=== PATIENT | female | born 1995 | race Caucasian/White ===

== ENCOUNTER → 2016-05-22 | Outpatient (CLI) | payer OTHER ==
[~2016-05-22] MED LIST: CITALOPRAM HBR20 MG PO; KEPPRA500 MG PO; KEPPRA750 MG PO; PROZAC40 MG PO; ZOLOFT100 MG PO
== END | disposition home or self-care (01) ==
LOC: RAD 13:00
DX: Z34.00 Encounter for supervision of normal first pregnancy, unspecified trimester (principal); Z3A.24 24 weeks gestation of pregnancy
CPT/HCPCS: 76811

== ENCOUNTER → 2016-06-20 | Outpatient (CLI) | payer OTHER ==
[~2016-06-20] VITALS: Ht 152.4 cm; Wt 69.0 kg
[~2016-06-20] MED LIST changes: +PRENATAL TABLE1 EAC3 PO
[2016-06-20 16:27] VITALS: BP 123/64
== END | disposition home or self-care (01) ==
LOC: IVINF 14:00
DX: Z31.82 Encounter for Rh incompatibility status (principal)
CPT/HCPCS: 96372

== ENCOUNTER 2016-09-03 22:54 | Inpatient (IN) | payer OTHER ==
[~2016-09-03] VITALS: Ht 152.4 cm; Wt 86.0 kg
[2016-09-03] MEDS ORDERED: IRON 100 PLUS1 EACH PO (23:37)
[2016-09-03 23:43] VITALS: BP 130/80
[2016-09-04] VITALS (21 sets, daily range): BP systolic 98–138; BP diastolic 55–81
[2016-09-04 00:46] LABS: EOSINOPHIL (%) 0.2 % (0-5); HEMATOCRIT 32.3 % (36.0-46.0); IMMATURE GRANULOCYTE (%) 0.5 % (0.0-0.7); IMMATURE GRANULOCYTE COUNT 0.1 K/uL; INSTRUMENT ABS NEUTROPHIL CT 15.2 K/uL; LYMPHOCYTE COUNT 1.6 K/uL (1.0-2.8); MCH 25.6 PG (29.0-34.0); MCHC 31.9 G/DL (30.0-36.0); MCV 80.1 FL (83-99); MEAN PLAT.VOLUME 9.8 uM^3 (9.5-12.4); MONOCYTE (%) 4.2 % (3-12); MONOCYTE COUNT 0.7 K/uL (0-0.8); NEUTROPHIL (%) 86.1 % (45-76); NEUTROPHIL COUNT 15.2 K/uL (1.8-6.4); PLATELET COUNT 258 K/uL (156-360); RBC DIS.WIDTH-CV 14.5 % (11.8-14.6); RBC DIS.WIDTH-SD 42.5 % (39-53); RED BLOOD COUNT 4.03 M/uL (3.80-5.20); WHITE BLOOD COUNT 17.7 K/uL (4.1-10.2)
[2016-09-04 01:02] LABS: AMPHETAMINES QUANT VALUE 0 NG/ML; BARBITUATES QUANT VALUE 0 NG/ML; BENZODIAZEPINES QUANT VALUE 0 NG/ML; BENZODIAZEPINES, URINE SCREEN Negative (200 ng/mL); MARIJUANA QUANT VALUE 0 NG/ML; OPIATES QUANTITATIVE VALUE 0 NG/ML; PHENCYCLIDINE QUANT VALUE 0 NG/ML
[2016-09-05 06:37] LABS: EOSINOPHIL (%) 1.3 % (0-5); EOSINOPHIL COUNT 0.2 K/uL (0-0.3); IMMATURE GRANULOCYTE (%) 0.6 % (0.0-0.7); IMMATURE GRANULOCYTE COUNT 0.1 K/uL; INSTRUMENT ABS NEUTROPHIL CT 9.3 K/uL; LYMPHOCYTE COUNT 2.4 K/uL (1.0-2.8); MCH 25.2 PG (29.0-34.0); MCV 81.2 FL (83-99); MEAN PLAT.VOLUME 9.5 uM^3 (9.5-12.4); MONOCYTE (%) 5.6 % (3-12); MONOCYTE COUNT 0.7 K/uL (0-0.8); NEUTROPHIL (%) 73.7 % (45-76); NEUTROPHIL COUNT 9.3 K/uL (1.8-6.4); PLATELET COUNT 244 K/uL (156-360); RBC DIS.WIDTH-CV 14.8 % (11.8-14.6); RBC DIS.WIDTH-SD 43.7 % (39-53); RED BLOOD COUNT 3.57 M/uL (3.80-5.20); WHITE BLOOD COUNT 12.6 K/uL (4.1-10.2)
[2016-09-05 07:30] VITALS: BP 110/70
[2016-09-05 14:57] VITALS: BP 123/72
[2016-09-05 23:05] VITALS: BP 123/78
[2016-09-06 07:51] VITALS: BP 132/71
[2016-09-06] MEDS ORDERED: IBUPROFEN800 MG PO (08:04)
== END 2016-09-06 17:00 | disposition home or self-care (01) | DRG 775 ==
LOC: LDRP-OP 22:54 → 2WEST 22:55
PROVIDERS: Advanced Practice Midwife
PROC: 0UQMXZZ Repair Vulva, External Approach (ICD-10-PCS; principal; 2016-09-04)
PROC: 00HU33Z Insertion of Infusion Device into Spinal Canal, Percutaneous Approach (ICD-10-PCS; principal; 2016-09-04)
PROC: 10E0XZZ Delivery of Products of Conception, External Approach (ICD-10-PCS; principal; 2016-09-04)
PROC: 3E0R3CZ (ICD-10-PCS; principal; 2016-09-04)
DX: O71.82 Other specified trauma to perineum and vulva (principal); O70.0 First degree perineal laceration during delivery; O99.02 Anemia complicating childbirth; D62 Acute posthemorrhagic anemia; O69.81X0 Labor and delivery complicated by cord around neck, without compression, not applicable or unspecified; Z3A.39 39 weeks gestation of pregnancy; Z37.0 Single live birth; O99.72 Diseases of the skin and subcutaneous tissue complicating childbirth; L51.1 Stevens-Johnson syndrome; G40.909 Epilepsy, unspecified, not intractable, without status epilepticus; O99.354 Diseases of the nervous system complicating childbirth
CPT/HCPCS: 80306 90; 83030; 85025; 86870; 86900; 86901; C1755; G0378; J0595; J2790; J7120

== ENCOUNTER 2017-02-22 19:39 | Emergency (ER) | payer OTHER ==
[~2017-02-22] VITALS: Ht 152.4 cm; Wt 84.9 kg
[~2017-02-22 19:39] MED LIST changes: +IBUPROFEN800 MG PO; +IRON 100 PLUS1 EACH PO
[2017-02-22 20:39] LABS: APPEARANCE CLEAR ((CLEAR)); BILIRUBIN NEGATIVE; BLOOD NEGATIVE; COLOR YELLOW ((YELLOW)); GLUCOSE (STRIP) NEGATIVE; KETONES NEGATIVE; LEUKOCYTES NEGATIVE; NITRITE NEGATIVE; PROTEIN (STRIP) NEGATIVE; SPECIFIC GRAVITY 1.021 (1.000-1.030); UCUL ADDED? NO; UROBILINOGEN 0.2 MG/DL (0.2-1.0)
[2017-02-22 21:06] LABS: SOURCE SWAB
[2017-02-22] MEDS ORDERED: MOTRIN800 MG PO (21:49)
[2017-02-22 23:34] VITALS: BP 123/70
== END 2017-02-22 23:33 | disposition home or self-care (01) ==
LOC: EME 19:39
PROVIDERS: Nurse Practitioner Family
DX: N93.9 Abnormal uterine and vaginal bleeding, unspecified (principal); R10.2 Pelvic and perineal pain; Z97.5 Presence of (intrauterine) contraceptive device; Z88.8 Allergy status to other drugs, medicaments and biological substances
CPT/HCPCS: 76856; 81003; 84702; 87210; 87491; 87591; 99281; 99284; J1885

== ENCOUNTER 2017-02-28 07:31 | Inpatient (IN) | payer OTHER ==
[~2017-02-28] VITALS: Ht 152.4 cm; Wt 78.3 kg
[~2017-02-28 07:31] MED LIST changes: +MOTRIN800 MG PO
[2017-02-28 08:18] LABS: BASOPHIL (%) 0.3 % (0-1); EOSINOPHIL (%) 1.7 % (0-5); EOSINOPHIL COUNT 0.2 K/uL (0-0.3); HEMATOCRIT 35.3 % (36.0-46.0); HEMOGLOBIN 11.2 G/DL (11.9-15.5); IMMATURE GRANULOCYTE (%) 0.2 % (0.0-0.7); LYMPHOCYTE (%) 14.6 % (15-42); LYMPHOCYTE COUNT 1.7 K/uL (1.0-2.8); MCH 24.3 PG (29.0-34.0); MCHC 31.7 G/DL (30.0-36.0); MCV 76.7 FL (83-99); MONOCYTE (%) 5.3 % (3-12); MONOCYTE COUNT 0.6 K/uL (0-0.8); NEUTROPHIL (%) 77.9 % (45-76); NEUTROPHIL COUNT 8.9 K/uL (1.8-6.4); PLATELET COUNT 360 K/uL (156-360); RBC DIS.WIDTH-CV 16.5 % (11.8-14.6); WHITE BLOOD COUNT 11.4 K/uL (4.1-10.2)
[2017-02-28 08:29] LABS: ALBUMIN 4.2 g/dL (3.2-4.8); CHLORIDE 110 mEq/L (99-109); POTASSIUM 3.7 mEq/L (3.7-5.4); SODIUM 141 mEq/L (136-147)
[2017-02-28 08:31] LABS: GLUCOSE 113 mg/dL (70-99)
[2017-02-28 08:32] LABS: TOTAL PROTEIN 6.4 g/dL (6.4-8.3)
[2017-02-28 08:33] LABS: TOTAL BILIRUBIN 0.5 mg/dL (0.0-1.0)
[2017-02-28 08:34] LABS: SERUM ETHYL ALCOHOL < 10 mg/dL
[2017-02-28 08:35] LABS: CREATININE 0.7 mg/dL (0.6-1.3); GFR ESTIMATE (CALCULATED) > 59 mL/min/
[2017-02-28 08:36] LABS: ALKALINE PHOSPHATASE 58 IU/L (3-129)
[2017-02-28 08:37] LABS: AST (GOT) 14 IU/L (2-34); UREA NITROGEN (BUN) 15 mg/dL (9-23)
[2017-02-28 08:38] LABS: SALICYLATE < 5.0 MG/DL (15-30)
[2017-02-28 08:39] LABS: ACETAMINOPHEN (TYLENOL) < 10 mcg/mL (10-30); ALT (GPT) 12 IU/L (3-49)
[2017-02-28 08:45] LABS: QUANTITATIVE HCG < 4.0 MIU/ML
[2017-02-28 09:11] LABS: IRON 417 MCG/DL (35-150)
[2017-02-28 10:05] LABS: CARBON DIOXIDE (BICARBONATE) 22.4 MEQ/L (20-31)
[2017-02-28 10:10] LABS: INTER. NORMALIZED RATIO 1.1
[2017-02-28 12:26] LABS: BASOPHIL (%) 0.2 % (0-1); EOSINOPHIL (%) 0.3 % (0-5); HEMATOCRIT 33.6 % (36.0-46.0); HEMOGLOBIN 10.4 G/DL (11.9-15.5); IMMATURE GRANULOCYTE (%) 0.4 % (0.0-0.7); LYMPHOCYTE (%) 10.7 % (15-42); LYMPHOCYTE COUNT 1.1 K/uL (1.0-2.8); MCH 23.9 PG (29.0-34.0); MCV 77.2 FL (83-99); MONOCYTE COUNT 0.3 K/uL (0-0.8); NEUTROPHIL (%) 85.4 % (45-76); NEUTROPHIL COUNT 8.4 K/uL (1.8-6.4); PLATELET COUNT 317 K/uL (156-360); RBC DIS.WIDTH-CV 16.3 % (11.8-14.6); RBC DIS.WIDTH-SD 46.1 % (39-53); RED BLOOD COUNT 4.35 M/uL (3.80-5.20); WHITE BLOOD COUNT 9.8 K/uL (4.1-10.2)
[2017-02-28 12:37] LABS: CHLORIDE 110 mEq/L (99-109); POTASSIUM 4.1 mEq/L (3.7-5.4); SODIUM 140 mEq/L (136-147)
[2017-02-28 12:39] LABS: GLUCOSE 109 mg/dL (70-99)
[2017-02-28 12:43] LABS: CREATININE 0.8 mg/dL (0.6-1.3); GFR ESTIMATE (CALCULATED) > 59 mL/min/; UREA NITROGEN (BUN) 10 mg/dL (9-23)
[2017-02-28 13:35] LABS: IRON 255 MCG/DL (35-150)
[2017-02-28 14:16] LABS: APPEARANCE SL.HAZY ((CLEAR)); BILIRUBIN NEGATIVE; BLOOD SMALL; COLOR YELLOW ((YELLOW)); GLUCOSE (STRIP) NEGATIVE; KETONES NEGATIVE; LEUKOCYTES NEGATIVE; NITRITE NEGATIVE; PROTEIN (STRIP) NEGATIVE; SPECIFIC GRAVITY 1.024 (1.000-1.030); UROBILINOGEN 0.2 MG/DL (0.2-1.0)
[2017-02-28 14:21] LABS: BACTERIA NONE SEEN /HPF; EPITHELIAL CELLS 1+ /HPF; MUCUS TRACE /LPF; RED BLOOD CELLS 0-5 /HPF (0-5); UCUL ADDED? YES
[2017-02-28 14:25] LABS: AMPHETAMINE NEGATIVE (500 ng/mL); BARBITURATES NEGATIVE (200 ng/mL); BENZODIAZEPINES NEGATIVE (150 ng/mL); BUPRENORPHINE NEGATIVE (10 ng/mL); COCAINE NEGATIVE (150 ng/mL); METHADONE NEGATIVE (200 ng/mL); METHAMPHETAMINE NEGATIVE (500 ng/mL); OPIATES (MORPHINE) NEGATIVE (100 ng/mL); OXYCODONE NEGATIVE (100 ng/mL); PHENCYCLIDINE NEGATIVE (25 ng/mL); PROPOXYPHENE NEGATIVE (300 ng/mL); THC CANNABINOIDS PRESUMPTIVE POSITIVE (50 ng/mL); TRICYCLIC ANTIDEPRESSANTS NEGATIVE (300 ng/mL)
[2017-02-28 16:45] LABS: IRON 119 MCG/DL (35-150)
[2017-02-28] MEDS ORDERED: ERGOCALCIF50000 UNIT PO (22:25)
[2017-02-28] MEDS ORDERED: IRON325 M1 PO (22:25)
[2017-02-28] MEDS ORDERED: LEXAPRO20 MG PO (22:25)
[2017-02-28] MEDS ORDERED: KEPPRA500 MG PO (22:25)
[2017-02-28 22:42] VITALS: BP 129/81
[2017-03-01 07:57] VITALS: BP 115/56
[2017-03-01 15:46] VITALS: BP 110/67
[2017-03-02 07:36] VITALS: BP 119/55
[2017-03-02 15:59] VITALS: BP 132/71
[2017-03-03 07:43] VITALS: BP 130/78
[2017-03-03] MEDS ORDERED: ARIPIPRAZOLE5 MG PO (09:37)
[2017-03-03] MEDS ORDERED: LEXAPRO20 MG PO (09:37)
== END 2017-03-03 11:42 | disposition home or self-care (01) | DRG 885 ==
LOC: EME 07:31 → EDOF 21:01 → 1WEST 21:01 → ENRESERV 22:12 → 1WEST 22:41
PROVIDERS: Physician Assistant
DX: F33.2 Major depressive disorder, recurrent severe without psychotic features (principal); T43.222A Poisoning by selective serotonin reuptake inhibitors, intentional self-harm, initial encounter; T45.4X2A Poisoning by iron and its compounds, intentional self-harm, initial encounter; T45.2X2A Poisoning by vitamins, intentional self-harm, initial encounter; F60.3 Borderline personality disorder; R56.9 Unspecified convulsions; R10.9 Unspecified abdominal pain; F12.10 Cannabis abuse, uncomplicated
CPT/HCPCS: 80048 91; 80053; 81003; 82310; 82330; 82803; 83540; 84702; 84999; 85025; 85025 91; 85610; 86850; 86900; 86901; 87077; 87086; 90837; 93005; 97150 GO; 97165 GO; 99281; 99285; G0480; J7120